=== PATIENT | female | born 1945 | race Two or more races ===

== ENCOUNTER 2024-03-14 20:04 | Inpatient (IN) | payer MEDICARE, OTHER ==
[~2024-03-14] VITALS: Ht 149.9 cm; Wt 50.8 kg
[2024-03-14 11:30] VITALS: BP 112/65; TEMP 97.8; O2SAT 97
[2024-03-14 20:32] LABS: *BILIRUBIN,URIN NEGATIVE (NEGATIVE); *CLARITY,URINE CLEAR (CLEAR); *COLOR,URINE YELLOW (YELLOW); *KETONES,URINE NEGATIVE (NEGATIVE); *PROTEIN,URINE NEGATIVE (NEGATIVE); *UROBILINOGEN,URINE 0.2 E.U./dl (NORMAL); LEUKOCYTE ESTERASE ,URINE 1+ (NEGATIVE); NITRITE, URINE NEGATIVE (NEGATIVE); UGLUCOSE NEGATIVE (NEGATIVE)
[2024-03-14 20:33] LABS: BASOPHILS # (AUTO) 0.1 K/UL (0.0-0.2); BASOPHILS % (AUTO) 1.1 % (0.0-2.0); EOSINOPHILS # (AUTO) 0.4 K/uL (0.0-0.7); EOSINOPHILS % (AUTO) 3.6 % (0.0-7.0); HEMATOCRIT 36.4 % (31.2-41.9); HEMOGLOBIN 12.1 g/dL (10.9-14.3); LYMPHOCYTES # (AUTO) 2.6 K/uL (0.8-4.8); LYMPHOCYTES % (AUTO) 26.2 % (20.5-51.5); MEAN CORPUSCULAR HEMOGLOBIN 31.1 uug (24.7-32.8); MEAN CORPUSCULAR HGB CONC 33 g/dL (32.3-35.6); MEAN CORPUSCULAR VOLUME 93.4 fL (75.5-95.3); MONOCYTES # (AUTO) 0.7 K/uL (0.1-1.30); MONOCYTES % (AUTO) 7.4 % (0.0-11.0); NEUTROPHILS # (AUTO) 6.1 K/uL (1.8-8.9); NEUTROPHILS % (AUTO) 61.7 % (38.5-71.5); PLATELET COUNT (AUTO) 242 K/uL (179-408); RED BLOOD CELL COUNT(AUTO) 3.89 MIL/uL (3.63-4.92); RED CELL DISTRIBUTION WIDTH 13.2 % (12.3-17.7); WHITE BLOOD COUNT (AUTO) 9.8 K/uL (3.8-11.8)
[2024-03-14] MEDS ORDERED: FAMO40TA7 PO (20:39)
[2024-03-14] MEDS ORDERED: MAGN400O6 PO (20:39)
[2024-03-14] MEDS ORDERED: HYDR-501 PO (20:39)
[2024-03-14] MEDS ORDERED: ACET-3117 PO (20:39)
[2024-03-14] MEDS ORDERED: BISA10SU61 RC (20:39)
[2024-03-14] MEDS ORDERED: DONE5TAB34 PO (20:39)
[2024-03-14] MEDS ORDERED: LISI20TA30 PO (20:39)
[2024-03-14] MEDS ORDERED: DOCU100T2 PO (20:39)
[2024-03-14] MEDS ORDERED: NA P133E RC (20:39)
[2024-03-14] MEDS ORDERED: CALC-15 PO (20:39)
[2024-03-14] MEDS ORDERED: AMLO-212 PO (20:39)
[2024-03-14] MEDS ORDERED: SENN8.6T19 PO (20:39)
[2024-03-14] MEDS ORDERED: HYDR12.55 PO (20:39)
[2024-03-14] MEDS ORDERED: HYDR-894 PO (20:39)
[2024-03-14 20:41] LABS: CALCIUM 9.9 mg/dL (8.5-10.1); CARBON DIOXIDE 27 mmol/L (21-32); CHLORIDE 104 mmol/L (98-107); GLUCOSE 96 mg/dL (74-106); POTASSIUM 3.7 mmol/L (3.5-5.1); SODIUM SERUM 141 mmol/L (136-145); UREA NITROGEN, BLOOD 32 mg/dL (7-18)
[2024-03-14 20:43] LABS: ETHANOL < 3 MG/DL (0-10)
[2024-03-14 20:44] LABS: AMMONIA 12 umol/L (11-32)
[2024-03-14 20:47] LABS: *AMPHETAMINE, URINE NEGATIVE (NEGATIVE); *BARBITURATE, URINE NEGATIVE (NEGATIVE); *BENZODIAZEPINE, URINE NEGATIVE (NEGATIVE); *CANNABINOID, URINE NEGATIVE (NEGATIVE); *COCCAINE, URINE NEGATIVE (NEGATIVE); *OPIATE, URINE NEGATIVE (NEGATIVE); *PHENCYCLIDINE SCREEN,URINE NEGATIVE (NEGATIVE); FENTANYL, URINE NEGATIVE (NEGATIVE)
[2024-03-14 20:48] LABS: DIFFERENTIAL COMMENT 1
[2024-03-14 20:53] LABS: *BLOOD, URINE TRACE (NEGATIVE)
[2024-03-14 20:57] LABS: ALANINE AMINOTRANSFERASE 27 U/L (14-59); ALBUMIN 3.6 g/dL (3.4-5.0); ALKALINE PHOSPHATASE 150 U/L (50-136); ASPARTATE AMINOTRANSFERASE 13 U/L (15-37); BILIRUBIN,TOTAL 0.4 mg/dL (0.2-1.0); TOTAL PROTEIN, SERUM 7.7 g/dL (6.4-8.2)
[2024-03-14 21:06] LABS: ACETAMINOPHEN < 2.0 ug/mL (10-30); BILIRUBIN,DIRECT < 0.1 mg/dL (0.0-0.2)
[2024-03-14 21:19] LABS: THYROID STIMULATING HORMONE 2.379 mIU/mL (0.358-3.740)
[2024-03-14 21:21] LABS: BACTERIA,URINE FEW /HPF (NONE SEEN); RBC,URINE 0-3 /HPF (0-3); SQUAMOUS EPITHELIAL CELL,UR FEW /HPF (NONE SEEN)
[2024-03-14] MEDS ORDERED: MAG HYDROX/AL HYDROX/SIMETH 30 ML LIQUID UDC PO PRN (23:45)
[2024-03-14] MEDS ORDERED: MAGNESIUM HYDROXIDE 30 ML LIQUID UDC PO PRN (23:45)
[2024-03-15 08:52] VITALS: BP 142/53; TEMP 97.9; O2SAT 98
[2024-03-15 16:15] VITALS: BP 96/54; TEMP 97.9; O2SAT 98
[2024-03-15] MEDS: OXCARBAZEPINE 150 MG TABLET PO SCH (16:53)
[2024-03-15 19:53] VITALS: BP 116/56; TEMP 98.1; O2SAT 96
[2024-03-16 08:00] VITALS: BP 137/65; TEMP 97.5; O2SAT 96
[2024-03-16] MEDS: OXCARBAZEPINE 150 MG TABLET PO SCH (14:53)
[2024-03-16] MEDS: QUETIAPINE FUMARATE 25 MG TABLET PO PRN (15:26)
[2024-03-16 16:00] VITALS: BP 135/56; TEMP 98.2; O2SAT 97
[2024-03-16] MEDS ORDERED: FLEET ENEMA 133 ML BOTTLE RC PRN (18:45)
[2024-03-16] MEDS ORDERED: MAGNESIUM HYDROXIDE 30 ML LIQUID UDC PO PRN (18:45)
[2024-03-16] MEDS ORDERED: BISACODYL 10 MG SUPP.RECT RC PRN (18:45)
[2024-03-16] MEDS ORDERED: SENNOSIDES 1 TABLET PO PRN (18:45)
[2024-03-16] MEDS ORDERED: Medication Not On Formulary EA (Acetaminophen 650 MG) PO PRN (18:45)
[2024-03-16 20:01] VITALS: BP 138/69; TEMP 97.8; O2SAT 96
[2024-03-16] MEDS: DONEPEZIL 5 MG TABLET PO SCH (21:15)
[2024-03-16] MEDS: FAMOTIDINE 20 MG TABLET PO SCH (21:15)
[2024-03-17 07:30] VITALS: BP 167/79; TEMP 98.2; O2SAT 96
[2024-03-17] MEDS: DOCUSATE SODIUM 100 MG CAPSULE PO SCH (08:56)
[2024-03-17] MEDS: AMLODIPINE 5 MG TABLET PO SCH (08:57)
[2024-03-17] MEDS: LISINOPRIL 20 MG TABLET PO SCH (08:57)
[2024-03-17] MEDS: HYDROCHLOROTHIAZIDE 12.5 MG CAPSULE PO SCH (09:19)
[2024-03-17 15:26] VITALS: BP 98/44; TEMP 98; O2SAT 96
[2024-03-17 19:59] VITALS: BP 109/51; TEMP 98.1; O2SAT 96
[2024-03-17] MEDS: QUETIAPINE FUMARATE 25 MG TABLET PO SCH (21:00)
[2024-03-18 08:18] VITALS: BP 152/64; TEMP 98; O2SAT 98
[2024-03-18 16:16] VITALS: BP 158/58; TEMP 98; O2SAT 98
[2024-03-18] MEDS: QUETIAPINE FUMARATE 25 MG TABLET PO SCH (21:28)
[2024-03-19 09:40] VITALS: BP 143/57; TEMP 97.8; O2SAT 98
[2024-03-19 15:44] VITALS: BP 135/65; TEMP 98; O2SAT 96
[2024-03-19 20:00] VITALS: BP 150/63; TEMP 97.8; O2SAT 96
[2024-03-19] MEDS: QUETIAPINE FUMARATE 25 MG TABLET PO SCH (20:32)
[2024-03-20 07:30] VITALS: BP 134/52; TEMP 98; O2SAT 96
[2024-03-20 16:04] VITALS: BP 110/54; TEMP 98; O2SAT 96
[2024-03-20 20:00] VITALS: BP 152/74; TEMP 98; O2SAT 98
[2024-03-21 07:58] VITALS: BP 133/57; TEMP 98.3; O2SAT 99
[2024-03-21 17:04] VITALS: BP 120/51; TEMP 98.1; O2SAT 98
[2024-03-21 20:00] VITALS: BP 132/60; TEMP 98.4; O2SAT 99
[2024-03-22 08:52] VITALS: BP 132/57; TEMP 98.2; O2SAT 98
[2024-03-22 15:57] VITALS: BP 114/63; TEMP 98.1; O2SAT 98
[2024-03-22 20:04] VITALS: BP 126/64; TEMP 97.9; O2SAT 96
[2024-03-23 08:18] VITALS: BP 136/58; TEMP 97.8; O2SAT 98
[2024-03-23] MEDS: busPIRone 5 MG TABLET PO SCH (10:30)
[2024-03-23 16:05] VITALS: BP 138/43; TEMP 97.9; O2SAT 98
[2024-03-23 20:02] VITALS: BP 134/60; TEMP 98.1; O2SAT 99
[2024-03-23] MEDS: ZOLPIDEM 5 MG TABLET PO PRN (22:23)
[2024-03-24 10:41] VITALS: BP 131/54; TEMP 98.2; O2SAT 99
[2024-03-24 15:49] VITALS: BP 161/66; TEMP 98.2; O2SAT 100
[2024-03-24 19:54] VITALS: BP 136/64; TEMP 97.9; O2SAT 98
[2024-03-24] MEDS: MELATONIN 3 MG TABLET PO SCH (20:59)
[2024-03-25 07:44] LABS: CALCIUM 9.4 mg/dL (8.5-10.1); CREATININE 0.7 mg/dL (0.6-1.3); MAGNESIUM 1.7 mg/dL (1.8-2.4); PHOSPHOROUS 3.3 mg/dL (2.5-4.9); POTASSIUM 4.1 mmol/L (3.5-5.1)
[2024-03-25 07:48] VITALS: BP 147/57; TEMP 98; O2SAT 99
[2024-03-25] MEDS: MAGNESIUM OXIDE 400 MG TABLET PO ONE (12:22)
[2024-03-25] MEDS: ACETAMINOPHEN 325 MG TABLET PO PRN (12:59)
[2024-03-25 16:04] VITALS: BP 123/69; TEMP 98; O2SAT 98
[2024-03-25 20:00] VITALS: BP 150/54; TEMP 97.2; O2SAT 96
[2024-03-26 07:53] VITALS: BP 141/59; TEMP 98; O2SAT 98
[2024-03-26] MEDS: QUETIAPINE FUMARATE 25 MG TABLET PO SCH (13:32)
[2024-03-26 15:23] VITALS: BP 127/58; TEMP 98; O2SAT 98
[2024-03-26] MEDS: AMLODIPINE 5 MG TABLET PO SCH (17:29)
[2024-03-26] MEDS: ENSURE WITH FIBER 237 ML LIQUID (CHOCOLATE) PO SCH (18:15)
[2024-03-27 07:45] LABS: CALCIUM 8.8 mg/dL (8.5-10.1); CREATININE 0.6 mg/dL (0.6-1.3); POTASSIUM 4.3 mmol/L (3.5-5.1)
[2024-03-27 09:18] VITALS: BP 136/46; TEMP 97.8; O2SAT 96
[2024-03-27 15:11] VITALS: BP 117/47; TEMP 98; O2SAT 98
[2024-03-27] MEDS: SODIUM CHLORIDE 1,000 MG TABLET PO SCH (18:01)
[2024-03-27 20:00] VITALS: BP 120/60; TEMP 98.3; O2SAT 98
[2024-03-28 08:21] VITALS: BP 143/56; TEMP 98; O2SAT 98
[2024-03-28 08:22] LABS: CALCIUM 8.6 mg/dL (8.5-10.1); CREATININE 0.7 mg/dL (0.6-1.3); POTASSIUM 4.3 mmol/L (3.5-5.1)
[2024-03-28 08:46] VITALS: BP 143/56
== END 2024-03-28 13:00 | DRG 885 ==
LOC: ER 20:06 → GPS 22:56
PROVIDERS: ADMIT Psychiatry & Neurology Psychiatry; ATTEND Internal Medicine
DX: F22 Delusional disorders (principal); E87.1 Hypo-osmolality and hyponatremia; F03.93 Unspecified dementia, unspecified severity, with mood disturbance; F03.918 Unspecified dementia, unspecified severity, with other behavioral disturbance; F39 Unspecified mood [affective] disorder; R41.9 Unspecified symptoms and signs involving cognitive functions and awareness; I10 Essential (primary) hypertension; K21.9 Gastro-esophageal reflux disease without esophagitis; R53.1 Weakness; K59.00 Constipation, unspecified; M81.0 Age-related osteoporosis without current pathological fracture; Z79.899 Other long term (current) drug therapy; Z88.0 Allergy status to penicillin; R63.0 Anorexia
CPT/HCPCS: 36415; 70450; 71045; 82533; 83605; 83735; 84100; 84443; 84484; 85025; 85730; 87040; 93005; A4606; A4663; G0480